=== PATIENT | female | born 1965 | race Caucasian/White ===

== ENCOUNTER → 2017-03-25 | Outpatient (CLI) | payer BC | END | disposition home or self-care (01) | LOC: LABWHC1 11:19 | PROVIDERS: ATTEND Orthopaedic Surgery | DX: Z01.812 Encounter for preprocedural laboratory examination (principal); M16.12 Unilateral primary osteoarthritis, left hip | CPT/HCPCS: 87070 ==

== ENCOUNTER 2017-04-05 05:49 | Inpatient (IN) | payer BC ==
[2017-03-30 11:05] VITALS: BMI 20.7
--- NOTE | 2017-04-04 11:05 | HP ---
HISTORY AND PHYSICAL Surgery scheduled for 04/05/2017. Caitlin Shahid is a 51-year-old patient seen with symptomatic left hip osteoarthritis. After having treatment options discussed, she elected to proceed with direct anterior left total hip arthroplasty. Consent regarding the procedure was obtained. Medical clearance was provided by Dr. Ortiz. PAST MEDICAL HISTORY: Depression. PAST SURGICAL HISTORY: Carpal tunnel release. Tonsillectomy. Lumbar laminectomy. MEDICATIONS: 1. [place]. 2. Prozac. 3. Plaquenil. ALLERGIES: None reported. SOCIAL HISTORY: The patient denies current tobacco use. PHYSICAL: Evaluation of the left hip there is a limited range of motion with severe pain. Diffuse tenderness. Positive impingement sign. Straight leg raise is negative. Distal neurovascular exam is intact. RADIOGRAPHS: Of the left hip revealed moderately severe osteoarthritic changes. IMPRESSION: Symptomatic left hip osteoarthritis. PLAN: Direct anterior left total hip arthroplasty. Surgery is 04/05/2017. MMODL / IJN: [id number] /
[~2017-04-05 05:49] MED LIST: ACETAMINOPHEN TAB 500 MG TAB PO ONE; DEXAMETHASONE SOD PHOSPHATE 10 MG/ML 1 ML VIAL IV ONE; HYDROmorphone 0.5 MG/0.5 ML SYRINGE IVP PRN; MELOXICAM 7.5 MG TAB PO ONE; ONDANSETRON 4 MG/2 ML VIAL IVP ONE; TRANEXAMIC ACID 1,000 MG in SODIUM CHLORIDE 0.9% 100 ML IVPB ONE; ceFAZolin 2 GM in SODIUM CHLORIDE 0.9% 100 ML IVPB ONE
[2017-04-05] MEDS ORDERED: LIDOCAINE 1% 20 ML VIAL (10MG/ML) FOR IV START INTRADERMA ONE (06:45)
[2017-04-05] MEDS ORDERED: SCOPOLAMINE 1.5MG/72HR PATCH TRANSDERM ONE (06:45)
[2017-04-05] MEDS: LACTATED RINGERS 1,000 ML IV SCH ×3 (06:45→21:59)
[2017-04-05] MEDS ORDERED: fentaNYL (PF) 50 MCG/ML 2 ML AMP ONE (07:28)
[2017-04-05] MEDS ORDERED: KETAMINE 10 MG/ML 20 ML VIAL ONE (07:28)
[2017-04-05] MEDS ORDERED: ePHEDrine SULFATE/0.9% NACL/PF 50 MG/5 ML SYRINGE IV ONE (07:28)
[2017-04-05] MEDS ORDERED: MIDAZOLAM 2 MG/2 ML VIAL ONE (07:28)
[2017-04-05] MEDS ORDERED: PROPOFOL 10 MG/ML 20 ML VIAL IV ONE (07:28)
[2017-04-05] MEDS ORDERED: TRANEXAMIC ACID 1,000 MG/10 ML VIAL ONE (07:28)
[2017-04-05] MEDS ORDERED: PHENYLEPHRINE-0.9% NACL SYG 1 MG/10 ML SYRINGE ONE (07:28)
[2017-04-05] MEDS ORDERED: SODIUM CHLORIDE 0.9% 100 ML BAG ONE (07:28)
--- NOTE | 2017-04-05 07:45 | HP ---
HISTORY AND PHYSICAL ADDENDUM: Patient has elected to proceed with right total hip arthroplasty with history of right hip osteoarthritis. Physical evaluation of the right hip reveals limited range of motion with severe pain. Positive hip impingement sign. Diffuse tenderness about the right hip girdle of the right hip. Otalgic gait regarding the right lower extremity. Straight leg raise is negative right lower extremity. Right lower extremity neurovascular exam is intact distally. RADIOGRAPHS: Of the right hip revealed moderate/severe osteoarthritic changes with pincer lesion. IMPRESSION: Symptomatic right hip osteoarthritis. PLAN: Direct anterior right total hip arthroplasty. Surgery scheduled for today 04/05/17. This is an addendum duration per history and physical. MMODL / IJN: [id number] /
[2017-04-05] MEDS ORDERED: ceFAZolin 3,000 MG in SODIUM CHLORIDE 0.9% IRRIGATIO 3,000 ML IRRIGATION ONE (08:01)
[2017-04-05] MEDS: ROPIVACAINE 246.25 MG, EPINEPHrine 0.5 MG, KETOROLAC 30 MG, cloNIDine HCL/PF 80 MCG, WA... MISCELLANE ONE ×10 (08:01→09:01)
[2017-04-05] MEDS ORDERED: LACTATED RINGERS 1,000 ML IV ONE (08:17)
--- NOTE | 2017-04-05 09:13 | XR ---
EXAMINATION TYPE: XR Hip Limited RT DATE OF EXAM: 04/05/2017 COMPARISON: NONE HISTORY: Postop TECHNIQUE: One view submitted. FINDINGS: There is a prosthetic hip in near anatomic alignment. There is soft tissue edema and emphysema. IMPRESSION: 1. Postoperative change. Appears in near-anatomic alignment.
--- NOTE | 2017-04-05 09:13 | FL ---
EXAMINATION TYPE: FL guidance operating room DATE OF EXAM: 04/05/2017 HISTORY: Flouroscopy time 32 seconds of fluoroscopy provided. IMPRESSION: 1. Fluoroscopy time.
[2017-04-05] MEDS ORDERED: NALOXONE 0.4 MG/ML 1 ML VIAL IV PRN (09:20)
[2017-04-05] MEDS ORDERED: ONDANSETRON 4 MG/2 ML VIAL IVP PRN (09:20)
[2017-04-05] MEDS ORDERED: HYDROcodone/APAP 7.5-325MG 1 EACH TAB PO PRN (09:20)
[2017-04-05] MEDS ORDERED: HYDROmorphone 0.5 MG/0.5 ML SYRINGE IVP PRN (09:20)
[2017-04-05] MEDS ORDERED: HYDROmorphone 1 MG/ML 1 ML SYRINGE IVP PRN (09:20)
[2017-04-05] MEDS ORDERED: hydrOXYzine PAMOATE 25 MG CAP PO PRN (09:20)
--- NOTE | 2017-04-05 09:20 | P.OP ---
Date of Procedure: 04/05/17 Preoperative Diagnosis: Right hip osteoarthritis Postoperative Diagnosis: Right hip osteoarthritis Procedure(s) Performed: Direct anterior right total hip arthroplasty Implants: 1. Depuy Corail press-fit KA size 12 standard collar femoral stem 2. Depuy pinnacle press-fit 58 mm acetabular shell 3. Depuy pinnacle polyethylene acetabular liner 58 mm OD 36 mm ID 4. Biolox delta ceramic femoral head +1.5 36 mm Anesthesia: local, spinal Surgeon: Yossi Garcia Developmental Education Instructor #1: Russell Mcclain Estimated Blood Loss (ml): 400 Pathology: other (Femoral head) Condition: stable Disposition: PACU Indications for Procedure: 51-year-old patient seen with symptomatic right hip osteoarthritis. After treatment options were discussed, she elected to proceed with right total hip arthroplasty. Operative Findings: See description of procedure Description of Procedure: The patient was taken to the operative suite. Patient underwent a spinal anesthetic by the department of anesthesia. Patient was then transferred to the [place] table. Patient was given preoperative IV antibiotics and TXA. Both lower extremities were placed in standard leg spars. The hip was then prepped and draped in the normal sterile orthopedic fashion. A standard anterior incision was made beginning 3 cm lateral and 1 cm distal to the ASIS extending 10 cm. Dissection was then carried down through the subcutaneous soft tissues down to the fascia overlying the tensor fascia zen. An incision was now made through the fascia. Careful dissection was taken down exposing the tensor fascia zen muscle. A Cobra retractor was now placed along the medial femoral neck and a second one along the lateral femoral neck. The venous circumflex vessels were now identified, cauterized and clipped. We identified the anterior hip capsule. An incision was made through the hip capsule along the lateral border. Tag sutures were then placed along the anterior capsule and lateral capsule. We then performed a capsulotomy. Retractors were now placed around the femoral neck itself. A Cobra retractor was now placed along the anterior acetabulum. Good exposure was now noted of the femoral head/neck complex. Residual labrum was debrided out. We placed the extremity into 3 turns of fine traction. We were then able to introduce a skid in between the femoral head and acetabulum. A placed a awl into the femoral head. We took 2 turns of traction off the extremity. Rotation was now released. The femoral head was then dislocated without difficulty. Additional releasing was performed of the capsule. The head was then reduced. All traction was released. A femoral neck cut was now made with a sagittal saw. It was completed with an osteotome at the lateral neck area. The femoral head was now removed without difficulty. The extremity was now rotated to 60 of external rotation. It was locked in position. Residual labrum was now debrided out. Serial reaming was performed of the acetabulum. Once we reached the appropriate size and a trial was position and fit nicely. The appropriate size was now chosen opened and made available. It was introduced into the acetabulum without difficulty. The C-arm/fluoroscopy was now brought into the operative field. We made sure we had a true AP pelvic view. We now under direct C-arm/fluoroscopy introduced into the acetabular component with appropriate version and inclination. It was well seated and stable. The C-arm was pulled back. An appropriate liner was introduced and clicked into position. It was felt to be stable. At this point retractors were removed. The extremity was now placed into 125 external rotation with no traction. The leg was now dropped to the ground and adducted. Appropriate retractors were now positioned along the proximal femur. We also placed our femoral look into position. Additional capsular releasing was performed to gain access to the proximal femur. We now used a box osteotome. A canal finder was now utilized. Serial broaching was now performed until we reached the appropriate size with good overall rotational stability. Appropriate calcar planing was performed. A trial head/neck was placed into position. The hip was now reduced. The C-arm /fluoroscopy was brought back into the operative field. A spot film was obtained of the nonoperative hip. A spot film was obtained of the trial components. Overlays were performed, we noted good overall alignment and positioning for determining leg length. The C-arm/fluoroscopy was pulled back. Retractors were repositioned and the hip was dislocated. The leg was again taken down to the ground and adducted. Appropriate retractors were repositioned as well as the femoral hook. All trial components were removed. The wound was irrigated with pulse lavage mechanical irrigation. The femoral implant was opened along with the femoral head. The femoral implant was introduced with good purchase and fixation noted. The femoral head was introduced with good positioning and fixation noted. Retractors were now removed. The hip was now reduced. There appeared be good positioning of the hip. Bipolar cautery had been utilized intermittently through the procedure for hemostasis. The wound was irrigated copiously with pulse lavage mechanical irrigation. The fascia was repaired with Vicryl suture. The subcutaneous soft tissues were repaired in layers with Vicryl suture. The skin was approximated with pernio/Dermabond. Sterile dressings were applied. Patient was then awakened, transferred to a bed and taken to recovery in stable condition. Dayday BOONE assisted with the procedure.
[2017-04-05] MEDS: HYDROmorphone 0.5 MG/0.5 ML SYRINGE IVP PRN ×2 (11:20→12:23)
[2017-04-05] MEDS: traMADol 50 MG TAB PO SCH ×3 (11:24→21:59)
[2017-04-05] MEDS ORDERED: LACTATED RINGERS 500 ML IV ONE (12:15)
[2017-04-05] MEDS: HYDROcodone/APAP 7.5-325MG 1 EACH TAB PO PRN ×2 (13:11→20:14)
[2017-04-05] MEDS ORDERED: DIAZEPAM 5 MG TAB PO PRN (19:20)
[2017-04-05] MEDS: ceFAZolin 2 GM in SODIUM CHLORIDE 0.9% 100 ML IVPB SCH ×2 (19:24→23:14)
--- NOTE | 2017-04-05 19:57 | CONS ---
CONSULTATION DATE OF CONSULTATION: 04/05/2017 REASON FOR CONSULTATION: Medical management requested by Dr. Garcia. CONSULTATION: This is a pleasant 51-year-old patient who follows with Dr. Chung. Chronic stable medical conditions include GERD, mitral valve prolapse, arthritis in some of the joints, lupus, controlled anxiety. The patient has undergone a right total hip arthroplasty. Postoperatively, the patient did have nausea and vomiting. She did feel dizzy and lightheaded. Came back to the bed. No chest pain or shortness of breath. REVIEW OF SYSTEMS: Constitutional: Tired. HEENT none. Respiratory none. Cardiovascular none. Gastrointestinal none. Genitourinary none. Musculoskeletal pain in several joints. Dermatological none. Hematologic none. Lymphatic none. Psychiatry: Anxiety. Neurological no focal. PAST MEDICAL HISTORY: GERD, osteoarthritis, lupus and anxiety. PAST SURGICAL HISTORY: Back surgery. Breast surgery, orthopedic surgery, uterine ablation, carpal tunnel surgery and breast augmentation. SOCIAL HISTORY: The patient smoked a pack a day for 27 years. Used in 2007. The patient drinks about 7-10 glasses of wine a week. Did smoke a pack a day for 27 years. Stopped in 2007. . The patient does housecleaning. FAMILY HISTORY: DVT. HOME MEDICATIONS: 1. Vitamin B complex 1 capsule p.o. daily. 2. 5 mg p.o. daily. 3. Motrin 200 to 400 mg q.6h p.r.n. 4. Plaquenil 200 mg p.o. q.h.s. 5. [place] 7.5 one tab p.o. b.i.d. 6. Prozac 20 mg q.h.s. 7. Valium 10 mg p.o. q.h.s. p.r.n. ALLERGIES: None. PHYSICAL EXAMINATION: Temperature 96.8, pulse 63, respirations 16, blood pressure 100/61, pulse ox 93% on room air. GENERAL APPEARANCE: Average build, sitting up, comfortable. Eyes pupils equal. Conjunctivae normal HEENT: Oral cavity normal. NECK: JVD not raised. Mass not palpable. Respiratory effort normal. LUNGS: Clear. Cardiovascular first and second sounds. No edema. ABDOMEN: Soft, nontender. Liver and spleen not palpable. Lymphatics: No lymph nodes palpable in the neck and axillae. Psychiatry: Alert and oriented times three. Mood and affect normal. Neurological: Pupils equal, cranial nerves grossly intact. MUSCULOSKELETAL: Evidence of osteoarthritis especially in the hands. Dressing over the right hip. INVESTIGATIONS: Investigation no blood work. ASSESSMENT: 1. Right total hip arthroplasty. 2. Gastroesophageal reflux disease. 3. Primary osteoarthritis of multiple joints including both the hands. 4. Chronic lupus under control. 5. Anxiety not otherwise specified. 6. Nausea, vomiting probably side effect of pain medication. PLAN: Home medications will be resumed. Pain control in place. Patient getting IV fluids. Getting Lovenox for DVT prophylaxis. Care was discussed with the patient. Thank you, Dr. Garcia. MMODL / IJN: [id number] /
[2017-04-05] MEDS ORDERED: FLUoxetine HCL 20 MG CAP PO SCH (21:00)
[2017-04-05] MEDS ORDERED: HYDROXYCHLOROQUINE SULFATE 200 MG TAB PO SCH (21:00)
[2017-04-05] MEDS ORDERED: SENNOSIDES-DOCUSATE SODIUM 1 EACH TAB PO SCH (21:00)
[2017-04-06] MEDS: HYDROcodone/APAP 7.5-325MG 1 EACH TAB PO PRN ×2 (01:44→08:21)
[2017-04-06 01:46] VITALS: RESP 16
[2017-04-06] MEDS: LACTATED RINGERS 1,000 ML IV SCH ×2 (05:39)
[2017-04-06 07:14] LABS: Basophils % (A) 0 %; CH 31.8; CHCM 32.7; Eosinophils # (A) 0.1 k/uL (0-0.7); Eosinophils % (A) 1 %; HCT 27.9 % (34.0-46.0); HDW 2.16; HGB 8.9 gm/dL (11.4-16.0); Luc # (Auto) 0.11; Luc % (Auto) 2; Lymphocytes # (A) 1.4 k/uL (1.0-4.8); Lymphocytes % (A) 24 %; MCH 31.3 pg (25.0-35.0); MCV 97.9 fL (80.0-100.0); Mean Platelet Volume 7.6; Monocytes # (A) 0.6 k/uL (0-1.0); Monocytes % (A) 11 %; Neutrophils # (A) 3.5 k/uL (1.3-7.7); Neutrophils % (A) 62 %; RBC 2.85 m/uL (3.80-5.40); RDW 13.8 % (11.5-15.5); WBC 5.7 k/uL (3.8-10.6); WBC (Perox) 5.72
[2017-04-06] MEDS ORDERED: FAMOTIDINE 20 MG TAB PO SCH (09:00)
[2017-04-06] MEDS ORDERED: ENOXAPARIN 40 MG/0.4 ML SYRINGE SQ SCH (09:00)
[2017-04-06] MEDS ORDERED: MELOXICAM 7.5 MG TAB PO SCH (09:00)
--- NOTE | 2017-04-06 10:19 | P.PN ---
Subjective Progress Note Date: 04/06/17 Principal diagnosis: Status post right total hip arthroplasty Patient seen today resting in her hospital bed, she appears comfortable. Her pain is well-controlled. She did have a little bit of low blood pressure this morning is ambulating, this has improved. She's urinating on her own. She denies any headaches, lightheadedness, chest pain, shortness of breath, fever chills Objective - Vital Signs Vital signs: Vital Signs Temp 98.6 F 04/06/17 00:35 Pulse 71 04/06/17 00:35 Resp 16 04/06/17 00:35 BP 100/48 04/06/17 00:40 Pulse Ox 98 04/06/17 00:35 Intake & Output 04/05/17 04/06/17 04/06/17 18:59 06:59 18:59 Intake Total 2961 1600 Output Total 725 3450 300 Balance 2236 -1850 -300 Intake: IV 2101 800 Lactated Ringers 1,000 ml 400 800 @ 100 mls/hr IV .Q10H LUCY Rx#:[id number] Intake, IV Titration 500 800 Amount Lactated Ringers 1,000 ml 800 @ 100 mls/hr IV .Q10H LUCY Rx#:[id number] Lactated Ringers 500 ml @ 500 999 mls/hr IV .Q31M ONE Rx#:[id number] Oral 360 Output: Urine 325 3450 300 Uretheral (Soliz) 3450 300 Estimated Blood Loss 400 Other: Voiding Method Indwelling Catheter # Voids 3 - Exam Right lower extremity: Incision is clean, dry, and intact. The prineo tape is in good condition. There is minimal soft tissue swelling and ecchymosis surrounding the medial and lateral aspects of the incision. Calf is soft, no tenderness with palpation. Plantar flexion, dorsiflexion, EHL, FHL are intact. Sensory exam to light touch throughout the extremity is intact, dorsal pedis pulses 2+. - Labs CBC & Chem 7: 04/06/17 06:42 Labs: Abnormal Lab Results - Last 24 Hours (Table) 04/06/17 Range/Units 06:42 RBC 2.85 L (3.80-5.40) m/uL Hgb 8.9 L (11.4-16.0) gm/dL Hct 27.9 L (34.0-46.0) % Assessment and Plan Plan: assessment: 1. Postop day 1 status post right total hip arthroplasty Plan: 1. Pain control, continue supportive oral medications 2. Daily dressing changes and icing of the hip 3. Home therapy and nursing after discharge 4. GI and DVT prophylaxis, we'll discharge home on aspirin 325 mg twice a day 5. Medical recommendations 6. Discharge planning: Patient will likely be discharged home today Time with Patient: Less than 30
--- NOTE | 2017-04-06 10:23 | P.DS ---
Providers Date of admission: 04/05/17 05:49 Expected date of discharge: 04/06/17 Attending physician: Yossi Garcia Consults: 04/05/17 09:20 Consult Physician Routine Consulting Provider: Charles Lazcano Consult Reason/Comments: Medical management Do you want consulting provider notified?: Yes Primary care physician: Stated None Hospital Course: Date of admission: 04/05/2017 Date of discharge: 04/06/2017 Admission diagnosis: Status post right total hip arthroplasty Discharge diagnosis: Same Attending physician: Dr. Garcia Surgical procedures: Right total hip arthroplasty Brief history: Patient is a 51-year-old female with a history of progressive primary right hip osteoarthritis. At this point patient has failed conservative treatment measures and has opted to proceed with a elective right total hip arthroplasty. Hospital course: Details of patient's surgery can be found in operative report. Patient tolerated the procedure well and was subsequently transported to orthopedic floor. Patient's orthopeidc and medical care was provided daily. Patient had daily laboratory tests performed for evaluation of overall blood counts. Patient had daily physical therapy to include strengthening range of motion as well as education with walker ambulation. Patient was treated with Lovenox for their postoperative DVT prophylaxis during their inpatient stay. Patient was noted to have a relatively uneventful postoperative course. Patient reported satisfactory pain control with oral pain medications by postoperative day 0. Patient showed satisfactory progress with physical therapy. Patient moved steadily through the program and had no difficulty meeting the goals by postoperative day 1. Given patient's otherwise satisfactory course and having met physical therapy goals, plan is to discharge patient home on postoperative day 1. Discharge condition/disposition: Patient will be discharged home in stable condition. Discharge medications: Instructions are given on resumption of patient's normal daily medications per primary care recommendation, in addition patient will be prescribed [place] 7.5 mg/325 mg, tramadol 50 mg, Pepcid 20 mg, Colace 100 mg, aspirin 325 mg. Discharge instructions: 1. Wound care and infection precautions, keep incision dry and covered while showering, no lotions, creams, moisturizers. No soaking, tubs, pools, hottubs. Do not scrub over the incision. 2. Weight-bear as tolerated with walker / cane until follow-up. 3. Ice and elevate when necessary. Do not exceed 20 minutes per hour with ice pack. 4. Utilize compression sleeve until seen at first follow up appointment. 5. Visiting nursing care. 6. Home physical therapy. 7. Pain meds and anticoagulants per prescription. 8. Pain medication has potential to cause constipation. Increase oral fluid and fiber intake. Contact primary care provider if you have not had a bowel movement within 48 hours after discharge 9. No anti-inflammatory medication until discussed at first post operative visit, this including Motrin, Aleve, Mobic, Diclofenac. 10. Follow up in office at 2 weeks postop with Dayday Mcclain PA-C 11. Follow up with your primary care doctor 7-10 days after discharge. 12. Contact [facility] with any questions, . Procedures: Right total hip arthroplasty Patient Condition at Discharge: Good Plan - Discharge Summary New Discharge Prescriptions: New Aspirin 325 mg PO BID #60 tab Docusate [Colace] 100 mg PO DAILY #30 capsule Famotidine [Pepcid] 20 mg PO DAILY #30 tablet HYDROcodone/APAP 7.5-325MG [[place] 7.5] 1 - 2 each PO Q6HR PRN #40 tab PRN Reason: Pain traMADol HCl [Ultram] 50 mg PO Q6H PRN #30 tab PRN Reason: Pain Sennosides-Docusate Sodium [Senokot-S] 2 each PO HS tab Continue FLUoxetine HCL [PROzac] 20 mg PO HS Vitamin B Complex 1 cap PO DAILY Turmeric Root Extract [Turmeric] 500 mg PO DAILY Hydroxychloroquine Sulfate [Plaquenil] 200 mg PO HS Diazepam [Valium] 10 mg PO HS PRN PRN Reason: sleep Discontinued Ibuprofen [Motrin] 200 - 400 mg PO Q6HR PRN PRN Reason: Pain No Action HYDROcodone/APAP 7.5-325MG [[place] 7.5-325] 1 tab PO BID Discharge Medication List Diazepam [Valium] 10 mg PO HS PRN 03/30/17 [History] FLUoxetine HCL [PROzac] 20 mg PO HS 03/30/17 [History] HYDROcodone/APAP 7.5-325MG [[place] 7.5-325] 1 tab PO BID 03/30/17 [History] Hydroxychloroquine Sulfate [Plaquenil] 200 mg PO HS 03/30/17 [History] Turmeric Root Extract [Turmeric] 500 mg PO DAILY 03/30/17 [History] Vitamin B Complex 1 cap PO DAILY 03/30/17 [History] Aspirin 325 mg PO BID #60 tab 04/06/17 [Rx] Docusate [Colace] 100 mg PO DAILY #30 capsule 04/06/17 [Rx] Famotidine [Pepcid] 20 mg PO DAILY #30 tablet 04/06/17 [Rx] HYDROcodone/APAP 7.5-325MG [[place] 7.5] 1 - 2 each PO Q6HR PRN #40 tab 04/06/17 [ Rx] Sennosides-Docusate Sodium [Senokot-S] 2 each PO HS tab 04/06/17 [Rx] traMADol HCl [Ultram] 50 mg PO Q6H PRN #30 tab 04/06/17 [Rx] Follow up Appointment(s)/Referral(s): [facility], [NON-STAFF] - Russell Mcclain PAC [PHYSICIAN ALLERGIST/PEDIATRIC PULMONOLOGIST] - 04/21/17 1:50 pm Patient Instructions/Handouts: Total Hip Replacement (DC) Activity/Diet/Wound Care/Special Instructions: Orthopedic Discharge Instructions: 1. Wound care and infection precautions, keep incision dry and covered while showering, no lotions, creams, moisturizers. No soaking, pools, hot tubs. Do not scrub over incision. 2. Weight-bear as tolerated with walker / cane until follow-up. 3. Ice and elevate when necessary. Do not exceed 20 minutes per hour with ice pack. 4. Utilize compression sleeve until seen at first follow up appointment. 5. Visiting nursing care. 6. Home physical therapy. 7. Pain meds and anticoagulants per prescription. 8. Pain medication has potential to cause constipation. Increase oral fluid and fiber intake. Contact primary care provider if you have not had a bowel movement within 48 hours after discharge. 9. No anti-inflammatory medication until discussed at first post operative visit, this including Motrin, Aleve, Mobic, Diclofenac. 10. Follow up in office at 2 weeks postop with Dayday Mcclain PA-C 11. Follow up with your primary care doctor 7-10 days after discharge. 12. Contact [facility] with any questions, . Discharge Disposition: HOME WITH HOME HEALTH SERVICES
[2017-04-06 10:28] VITALS: BP 105/53; PULSE 66; TEMP 97.5
[2017-04-06] MEDS: traMADol 50 MG TAB PO SCH ×2 (12:43)
--- NOTE | 2017-04-06 18:23 | P.PN ---
Progress Note - Text Progress Note Date: 04/06/17 DATE OF SERVICE: 04/06/2017 PRESENTING COMPLAINT: Right total hip arthroplasty HISTORY OF PRESENT ILLNESS: 51-year-old female with status post right total hip arthroplasty. INTERVAL HISTORY: 04/06/2017: Seeing patient in follow-up Patient up ambulating with physical therapy. Tolerating her diet eating 100% of her meal, agreeable to work with physical therapy, pains well controlled, moving her bowels, anxious to go home. REVIEW OF SYSTEMS: Done for constitutional ,cardiovascular, GI, pulmonary with relevant findings as above. CURRENT MEDICATIONS [place], Valium, Lovenox, Prozac, Vistaril, Mobic, Senokot-S, Ultram. PHYSICAL EXAM VITAL SIGNS: Temperature 97.5, pulse 66, blood pressure 105/53 oxygen saturation 99% on room air respiratory rate 16. GENERAL APPEARANCE: Sitting up in bed, not in distress. EYES: Pupils equal. Conjunctiva normal. NECK: JVD not raised. Mass not palpable. RESPIRATORY: Respiratory effort normal. Lungs clear to auscultation. CARDIOVASCULAR: First and second sounds normal. No edema. ABDOMEN: Soft. Liver and spleen not palpable. No tenderness. No mass palpable. PSYCHIATRY: Alert and oriented x3. Mood and affect normal. MUSCULOSKELETAL: Evidence of osteoarthritis especially in the hands, right hip dressing intact no drainage noted. INVESTIGATIONS: Hemoglobin 8.9, hematocrit 27.9. ASSESSMENT: -Right total hip arthroplasty -Acute blood loss anemia as expected from surgery. -Gastroesophageal reflux disease. -Primary osteoarthritis of multiple joints including both of the hands. -Chronic lupus under control. -Anxiety not otherwise specified. -Nausea vomiting probably side effects of pain medication. PLAN: Patient is doing well enough with physical therapy and pain management and overall condition, approved for discharge by orthopedics. From medical standpoint patient is stable for discharge. SYSTEM SAFETY ENGINEER statement: Patient was seen and examined by nurse practitioner Tran Mehta and all elements of the case discussed with attending Dr. Lazcano
--- NOTE | 2017-04-06 23:13 | PN ---
PROGRESS NOTE DATE OF SERVICE: 04/06/2017 ATTENDING NOTE: This patient was seen and examined by me. I discussed with nurse practitioner, Ms. Mehta. The patient is status post right hip arthroplasty, doing better. No chest pain or short of breath. Tolerating a diet. Did work with Physical Therapy. EXAMINATION: Afebrile, blood pressure 105/53. LUNGS: Clear. CARDIOVASCULAR: First and second sounds normal. Right total hip arthroplasty. PLAN: Patient doing well. Up and about. No dizziness, lightheadedness. Should follow up with her family doctor upon discharge. MMODL / IJN: [id number] /
== END 2017-04-06 14:55 | disposition home health service (06) | DRG 470 ==
LOC: 2ORMAIN 05:49 → 3SUR 09:15
PROVIDERS: ADMIT Orthopaedic Surgery; ATTEND Orthopaedic Surgery
PROC: 0SR904A Replacement of Right Hip Joint with Ceramic on Polyethylene Synthetic Substitute, Uncemented, Open Approach (ICD-10-PCS; principal; 2017-04-05 07:30)
DX: M16.11 Unilateral primary osteoarthritis, right hip (principal); I95.9 Hypotension, unspecified; D62 Acute posthemorrhagic anemia; F41.9 Anxiety disorder, unspecified; I34.1 Nonrheumatic mitral (valve) prolapse; K21.9 Gastro-esophageal reflux disease without esophagitis; Z79.899 Other long term (current) drug therapy; Z87.891 Personal history of nicotine dependence; L93.0 Discoid lupus erythematosus; R11.2 Nausea with vomiting, unspecified; T40.605A Adverse effect of unspecified narcotics, initial encounter; F32.9 Major depressive disorder, single episode, unspecified
CPT/HCPCS: 73501; 81025; 85025; 86850; 86900; 86901; 88300; 88305; 88331

== ENCOUNTER → 2017-05-28 | Outpatient (CLI) | payer BC ==
[2017-05-28 14:37] LABS: Basophils % (A) 1 %; CHCM 31.3; Eosinophils # (A) 0.1 k/uL (0-0.7); Eosinophils % (A) 3 %; HCT 42.6 % (34.0-46.0); HDW 2.14; Luc # (Auto) 0.05; Luc % (Auto) 1; Lymphocytes # (A) 1.2 k/uL (1.0-4.8); Lymphocytes % (A) 25 %; MCH 29.5 pg (25.0-35.0); MCHC 30.7 g/dL (31.0-37.0); MCV 96.2 fL (80.0-100.0); Mean Platelet Volume 7.2; Monocytes # (A) 0.3 k/uL (0-1.0); Monocytes % (A) 6 %; Neutrophils # (A) 3.1 k/uL (1.3-7.7); Neutrophils % (A) 64 %; RBC 4.43 m/uL (3.80-5.40); RDW 13.2 % (11.5-15.5); WBC 4.8 k/uL (3.8-10.6); WBC (Perox) 5.31
[2017-05-28 14:40] LABS: HGB 13.1 gm/dL (11.4-16.0)
[2017-05-28 14:47] LABS: Potassium 4.1 mmol/L (3.5-5.1)
[2017-05-28 15:33] LABS: INR 1.1 (<1.2)
[2017-05-28 15:35] LABS: Prothrombin Time 11.1 sec (9.0-12.0)
[2017-05-28 15:39] LABS: Partial Thromboplastin Time 28.5 sec (22.0-30.0)
== END | disposition home or self-care (01) ==
LOC: LABPAT 13:07
PROVIDERS: ATTEND Orthopaedic Surgery
DX: Z01.812 Encounter for preprocedural laboratory examination (principal); M16.12 Unilateral primary osteoarthritis, left hip
CPT/HCPCS: 36415; 80051; 85025; 85610; 85730; 86850; 86900; 86901; 87070